=== PATIENT | female | born 1945 | race Caucasian/White ===

== ENCOUNTER 2018-01-24 17:15 | Inpatient (IN) | payer MEDICARE ==
[~2018-01-24] VITALS: Ht 160 cm; Wt 73.5 kg
[2018-01-24] MEDS ORDERED: BACL10TA PO ×2 (17:56→19:04)
[2018-01-24] MEDS ORDERED: Z GUARD REMEDY PASTE 57 GM TUBE TOP PRN (18:00)
[2018-01-24] MEDS ORDERED: HYDROCODONE/APAP 10-325 MG TABLET PO PRN (18:00)
[2018-01-24] MEDS ORDERED: LORAZEPAM 1 MG TABLET PO PRN ×2 (18:15→21:00)
[2018-01-24] MEDS ORDERED: ERGOCALCIFEROL 50,000 UNIT CAPSULE PO SCH ×2 (18:15→20:30)
[2018-01-24] MEDS ORDERED: GABA-534 PO ×2 (19:04→19:37)
[2018-01-24] MEDS ORDERED: HYDR-3980 PO (19:06)
[2018-01-24] MEDS ORDERED: LORA2VIA32 IV (19:08)
[2018-01-24] MEDS ORDERED: ERGO500014 PO (19:09)
[2018-01-24] MEDS ORDERED: OXYC20TA58 PO (19:09)
[2018-01-24] MEDS ORDERED: ESTR0.5T PO (19:37)
[2018-01-24] MEDS ORDERED: GLIP10TA11 PO (19:39)
[2018-01-24] MEDS ORDERED: NPH,100V2 (19:45)
[2018-01-24] MEDS ORDERED: NPH,100V2 SUBCUT (19:45)
[2018-01-24] MEDS ORDERED: BLOO-1672 MC (19:46)
[2018-01-24] MEDS ORDERED: HYDR25TA4 PO (19:47)
[2018-01-24] MEDS ORDERED: POTA10CA43 PO (19:51)
[2018-01-24] MEDS ORDERED: PARO20TA7 PO (19:51)
[2018-01-24] MEDS ORDERED: METF500T6 PO (19:51)
[2018-01-24] MEDS ORDERED: SIMV20TA6 PO (19:51)
[2018-01-24] MEDS ORDERED: OXYCODONE HCL 20 MG TAB.SR.12H PO PRN (20:30)
[2018-01-24] MEDS ORDERED: LORAZEPAM 2 MG/1 ML VIAL IV PRN (20:30)
[2018-01-24] MEDS ORDERED: INSULIN NPH 1,000 UNITS/10 ML VIAL SQ SCH (21:00)
[2018-01-24] MEDS ORDERED: BLOOD SUGAR DIAGNOSTIC 1 EACH STRIP VI SCH (21:00)
[2018-01-24] MEDS ORDERED: GABAPENTIN 300 MG CAPSULE PO SCH ×3 (21:00→22:00)
[2018-01-24] MEDS ORDERED: SIMVASTATIN 20 MG TABLET PO SCH (21:00)
[2018-01-24] MEDS ORDERED: OXYCODONE HCL 20 MG TAB.SR.12H PO SCH (21:00)
[2018-01-24] MEDS ORDERED: BACLOFEN 10 MG TABLET PO SCH (22:00)
[2018-01-24] MEDS: SIMVASTATIN 20 MG TABLET PO SCH (22:07)
[2018-01-24] MEDS: GABAPENTIN 300 MG CAPSULE PO SCH (22:08)
[2018-01-24] MEDS: BACLOFEN 10 MG TABLET PO SCH (22:08)
[2018-01-24] MEDS: INSULIN NPH 1,000 UNITS/10 ML VIAL SQ SCH (22:10)
[2018-01-24] MEDS: OXYCODONE HCL 10 MG TAB.SR.12H PO SCH (22:21)
[2018-01-24] MEDS: BLOOD SUGAR DIAGNOSTIC 1 EACH STRIP VI SCH (22:31)
[2018-01-25] MEDS: BACLOFEN 10 MG TABLET PO SCH ×3 (06:02→21:43)
[2018-01-25] MEDS: GABAPENTIN 300 MG CAPSULE PO SCH ×3 (06:03→21:44)
[2018-01-25] MEDS: OXYCODONE HCL 10 MG TAB.SR.12H PO SCH ×3 (06:05→22:36)
[2018-01-25] MEDS ORDERED: glipiZIDE 10 MG TABLET PO SCH (07:00)
[2018-01-25 07:01] LABS: CARBON DIOXIDE 29 mmol/L (21-32); CHLORIDE 96 mmol/L (98-107); CHOLESTEROL 122 mg/dL (<200); CREATININE 0.9 mg/dL (0.6-1.3); HDL CHOLESTEROL 24 mg/dL (40-60); MAGNESIUM 1.3 mg/dL (1.8-2.4); PHOSPHOROUS 2.8 mg/dL (2.5-4.9); POTASSIUM 4.1 mmol/L (3.5-5.1); TRIGLYCERIDES 200 MG/DL (30-150); UREA NITROGEN, BLOOD 10 mg/dL (7-18)
[2018-01-25 07:03] LABS: GLUCOSE 330 mg/dL (74-106)
[2018-01-25 07:12] LABS: BASOPHILS # (AUTO) 0.1 K/uL (0.0-8.0); BASOPHILS % (AUTO) 0.7 % (0.0-2.0); EOSINOPHILS # (AUTO) 0.2 K/uL (0.0-0.7); HEMATOCRIT 33.9 % (31.2-41.9); HEMOGLOBIN 11.2 g/dL (10.9-14.3); LYMPHOCYTES % (AUTO) 25.9 % (20.5-51.5); MEAN CORPUSCULAR HEMOGLOBIN 26.7 uug (24.7-32.8); MEAN CORPUSCULAR HGB CONC 33 g/dL (32.3-35.6); MEAN CORPUSCULAR VOLUME 80.9 fL (75.5-95.3); MONOCYTES # (AUTO) 1.6 K/uL (2.0-10.0); MONOCYTES % (AUTO) 13.8 % (0.0-11.0); NEUTROPHILS # (AUTO) 6.7 K/uL (1.8-8.9); NEUTROPHILS % (AUTO) 57.6 % (38.5-71.5); PLATELET COUNT (AUTO) 304 K/uL (179-408); WHITE BLOOD COUNT (AUTO) 11.7 K/uL (3.8-11.8)
[2018-01-25 07:14] VITALS: BP 130/87
[2018-01-25 08:32] VITALS: BP 152/59
[2018-01-25] MEDS ORDERED: POTASSIUM CHLORIDE 8 MEQ TAB.PRT.SR PO SCH (09:00)
[2018-01-25] MEDS ORDERED: METFORMIN HCL 850 MG TABLET PO SCH (09:00)
[2018-01-25] MEDS ORDERED: POTASSIUM CHLORIDE 10 MEQ TAB.PRT.SR PO SCH (09:00)
[2018-01-25] MEDS ORDERED: PAROXETINE HCL 10 MG TABLET PO SCH (09:00)
[2018-01-25] MEDS ORDERED: ESTRADIOL 1 MG TABLET PO SCH (09:00)
[2018-01-25] MEDS ORDERED: HYDROCHLOROTHIAZIDE 25 MG TABLET PO SCH (09:00)
[2018-01-25] MEDS: HYDROCHLOROTHIAZIDE 25 MG TABLET PO SCH (09:03)
[2018-01-25] MEDS: glipiZIDE 10 MG TABLET PO SCH (09:05)
[2018-01-25] MEDS: PAROXETINE HCL 20 MG TABLET PO SCH (09:05)
[2018-01-25] MEDS: ESTRADIOL 1 MG TABLET PO SCH (09:05)
[2018-01-25] MEDS: METFORMIN HCL 500 MG TABLET PO SCH (09:05)
[2018-01-25] MEDS: HYDROCODONE/APAP 10-325 MG TABLET PO PRN ×2 (09:26→20:08)
[2018-01-25] MEDS: POTASSIUM CHLORIDE 8 MEQ TAB.PRT.SR PO SCH (09:26)
[2018-01-25] MEDS: BLOOD SUGAR DIAGNOSTIC 1 EACH STRIP VI SCH ×3 (09:31→21:45)
[2018-01-25] MEDS: INSULIN NPH 1,000 UNITS/10 ML VIAL SQ SCH ×2 (09:36→21:51)
[2018-01-25] MEDS ORDERED: DEXTROSE 50% 50 ML DISP.SYRIN IV PRN (13:00)
[2018-01-25] MEDS ORDERED: MAGNESIUM OXIDE 400 MG TABLET PO ONE (14:00)
[2018-01-25] MEDS ORDERED: BLOOD SUGAR DIAGNOSTIC 1 EACH STRIP VI SCH (16:30)
[2018-01-25] MEDS: INSULIN REGULAR, HUMAN 300 UNIT/3 ML VIAL SQ PRN ×2 (17:30→21:51)
[2018-01-25 20:40] VITALS: BP 139/90
[2018-01-25] MEDS: SIMVASTATIN 20 MG TABLET PO SCH (21:44)
[2018-01-25] MEDS: ZOLPIDEM 5 MG TABLET PO PRN (22:36)
[2018-01-26] MEDS: HYDROCODONE/APAP 10-325 MG TABLET PO PRN ×2 (04:36→10:27)
[2018-01-26] MEDS: OXYCODONE HCL 10 MG TAB.SR.12H PO SCH ×3 (06:52→22:29)
[2018-01-26] MEDS: GABAPENTIN 300 MG CAPSULE PO SCH ×3 (06:52→22:30)
[2018-01-26] MEDS: BACLOFEN 10 MG TABLET PO SCH ×3 (06:52→22:30)
[2018-01-26] MEDS: BLOOD SUGAR DIAGNOSTIC 1 EACH STRIP VI SCH ×4 (06:53→21:00)
[2018-01-26] MEDS: PAROXETINE HCL 20 MG TABLET PO SCH (08:31)
[2018-01-26] MEDS: POTASSIUM CHLORIDE 8 MEQ TAB.PRT.SR PO SCH (08:31)
[2018-01-26] MEDS: ESTRADIOL 1 MG TABLET PO SCH (08:31)
[2018-01-26] MEDS: METFORMIN HCL 500 MG TABLET PO SCH (08:31)
[2018-01-26] MEDS: glipiZIDE 10 MG TABLET PO SCH (08:31)
[2018-01-26] MEDS: HYDROCHLOROTHIAZIDE 25 MG TABLET PO SCH (08:35)
[2018-01-26] MEDS: INSULIN NPH 1,000 UNITS/10 ML VIAL SQ SCH ×2 (08:38→22:25)
[2018-01-26] MEDS: INSULIN REGULAR, HUMAN 300 UNIT/3 ML VIAL SQ PRN ×4 (08:40→22:26)
[2018-01-26 10:50] VITALS: BP 144/78
[2018-01-26 22:15] VITALS: BP 151/71
[2018-01-26] MEDS: SIMVASTATIN 20 MG TABLET PO SCH (22:30)
[2018-01-26] MEDS: ZOLPIDEM 5 MG TABLET PO PRN (22:41)
[2018-01-27 05:17] VITALS: BP 157/70
[2018-01-27] MEDS: BACLOFEN 10 MG TABLET PO SCH ×3 (06:52→21:51)
[2018-01-27] MEDS: GABAPENTIN 300 MG CAPSULE PO SCH ×3 (06:52→21:51)
[2018-01-27] MEDS: OXYCODONE HCL 10 MG TAB.SR.12H PO SCH ×3 (06:52→21:52)
[2018-01-27] MEDS: BLOOD SUGAR DIAGNOSTIC 1 EACH STRIP VI SCH ×4 (07:00→20:27)
[2018-01-27] MEDS: INSULIN REGULAR, HUMAN 300 UNIT/3 ML VIAL SQ PRN ×4 (08:07→20:31)
[2018-01-27 09:00] VITALS: BP 145/82
[2018-01-27] MEDS: METFORMIN HCL 500 MG TABLET PO SCH (09:20)
[2018-01-27] MEDS: HYDROCHLOROTHIAZIDE 25 MG TABLET PO SCH (09:21)
[2018-01-27] MEDS: PAROXETINE HCL 20 MG TABLET PO SCH (09:21)
[2018-01-27] MEDS: glipiZIDE 10 MG TABLET PO SCH (09:21)
[2018-01-27] MEDS: POTASSIUM CHLORIDE 8 MEQ TAB.PRT.SR PO SCH (09:24)
[2018-01-27] MEDS: ESTRADIOL 1 MG TABLET PO SCH (09:24)
[2018-01-27] MEDS: INSULIN NPH 1,000 UNITS/10 ML VIAL SQ SCH ×2 (09:26→20:32)
[2018-01-27] MEDS: SIMVASTATIN 20 MG TABLET PO SCH (20:23)
[2018-01-27] MEDS: HYDROCODONE/APAP 10-325 MG TABLET PO PRN (20:24)
[2018-01-27 20:51] VITALS: BP 169/84
[2018-01-27] MEDS: CLONIDINE HCL 0.1 MG TABLET PO PRN (22:18)
[2018-01-27] MEDS: BENAZEPRIL HCL 10 MG TABLET PO SCH (22:19)
[2018-01-27 23:19] VITALS: BP 138/72
[2018-01-28 05:35] VITALS: BP 110/60
[2018-01-28] MEDS: BACLOFEN 10 MG TABLET PO SCH ×3 (05:59→22:17)
[2018-01-28] MEDS: GABAPENTIN 300 MG CAPSULE PO SCH ×3 (06:00→22:17)
[2018-01-28] MEDS: OXYCODONE HCL 10 MG TAB.SR.12H PO SCH ×3 (06:00→22:17)
[2018-01-28] MEDS: BLOOD SUGAR DIAGNOSTIC 1 EACH STRIP VI SCH ×4 (06:32→20:30)
[2018-01-28 08:00] VITALS: BP 129/66
[2018-01-28] MEDS: INSULIN REGULAR, HUMAN 300 UNIT/3 ML VIAL SQ PRN ×4 (08:19→20:37)
[2018-01-28] MEDS: BENAZEPRIL HCL 10 MG TABLET PO SCH ×2 (09:38→20:30)
[2018-01-28] MEDS: ESTRADIOL 1 MG TABLET PO SCH (09:39)
[2018-01-28] MEDS: HYDROCHLOROTHIAZIDE 25 MG TABLET PO SCH (09:39)
[2018-01-28] MEDS: PAROXETINE HCL 20 MG TABLET PO SCH (09:39)
[2018-01-28] MEDS: METFORMIN HCL 500 MG TABLET PO SCH (09:39)
[2018-01-28] MEDS: glipiZIDE 10 MG TABLET PO SCH (09:39)
[2018-01-28] MEDS: POTASSIUM CHLORIDE 8 MEQ TAB.PRT.SR PO SCH (09:39)
[2018-01-28] MEDS: INSULIN NPH 1,000 UNITS/10 ML VIAL SQ SCH ×2 (09:41→20:38)
[2018-01-28 16:22] VITALS: BP 144/63
[2018-01-28 20:16] VITALS: BP 129/64
[2018-01-28] MEDS: SIMVASTATIN 20 MG TABLET PO SCH (20:30)
[2018-01-28] MEDS: HYDROCODONE/APAP 10-325 MG TABLET PO PRN (20:31)
[2018-01-29] MEDS: OXYCODONE HCL 10 MG TAB.SR.12H PO SCH ×3 (06:27→21:53)
[2018-01-29] MEDS: BACLOFEN 10 MG TABLET PO SCH ×3 (06:27→21:52)
[2018-01-29] MEDS: GABAPENTIN 300 MG CAPSULE PO SCH ×3 (06:27→21:52)
[2018-01-29] MEDS: BLOOD SUGAR DIAGNOSTIC 1 EACH STRIP VI SCH ×4 (06:39→20:00)
[2018-01-29 07:23] LABS: BASOPHILS # (AUTO) 0.1 K/uL (0.0-8.0); BASOPHILS % (AUTO) 0.8 % (0.0-2.0); EOSINOPHILS # (AUTO) 0.4 K/uL (0.0-0.7); EOSINOPHILS % (AUTO) 3.3 % (0.0-7.0); HEMATOCRIT 32.3 % (31.2-41.9); HEMOGLOBIN 10.7 g/dL (10.9-14.3); LYMPHOCYTES # (AUTO) 3.2 K/uL (20.0-40.0); LYMPHOCYTES % (AUTO) 27.7 % (20.5-51.5); MEAN CORPUSCULAR HEMOGLOBIN 26.8 uug (24.7-32.8); MEAN CORPUSCULAR HGB CONC 33 g/dL (32.3-35.6); MEAN CORPUSCULAR VOLUME 80.9 fL (75.5-95.3); MONOCYTES # (AUTO) 1.4 K/uL (2.0-10.0); NEUTROPHILS # (AUTO) 6.4 K/uL (1.8-8.9); NEUTROPHILS % (AUTO) 56.2 % (38.5-71.5); PLATELET COUNT (AUTO) 299 K/uL (179-408); WHITE BLOOD COUNT (AUTO) 11.5 K/uL (3.8-11.8)
[2018-01-29 07:44] LABS: THYROID STIMULATING HORMONE 14.446 mIU/mL (0.358-3.740)
[2018-01-29] MEDS: INSULIN REGULAR, HUMAN 300 UNIT/3 ML VIAL SQ PRN ×4 (07:50→21:07)
[2018-01-29 08:14] LABS: ALANINE AMINOTRANSFERASE 27 U/L (14-59); ALKALINE PHOSPHATASE 73 U/L (50-136); ASPARTATE AMINOTRANSFERASE 44 U/L (15-37); BILIRUBIN,TOTAL 0.2 mg/dL (0.2-1.0); CARBON DIOXIDE 30 mmol/L (21-32); CHLORIDE 99 mmol/L (98-107); CREATININE 0.9 mg/dL (0.6-1.3); GLUCOSE 161 mg/dL (74-106); MAGNESIUM 1.3 mg/dL (1.8-2.4); PHOSPHOROUS 3.6 mg/dL (2.5-4.9); POTASSIUM 3.6 mmol/L (3.5-5.1); TOTAL PROTEIN, SERUM 7.1 g/dL (6.4-8.2); UREA NITROGEN, BLOOD 14 mg/dL (7-18)
[2018-01-29 08:16] VITALS: BP 120/64
[2018-01-29] MEDS: INSULIN NPH 1,000 UNITS/10 ML VIAL SQ SCH ×2 (09:52→21:06)
[2018-01-29] MEDS: PAROXETINE HCL 20 MG TABLET PO SCH (09:53)
[2018-01-29] MEDS: POTASSIUM CHLORIDE 8 MEQ TAB.PRT.SR PO SCH (09:55)
[2018-01-29] MEDS: HYDROCHLOROTHIAZIDE 25 MG TABLET PO SCH (09:56)
[2018-01-29] MEDS: ESTRADIOL 1 MG TABLET PO SCH (09:56)
[2018-01-29] MEDS: BENAZEPRIL HCL 10 MG TABLET PO SCH ×2 (09:57→21:02)
[2018-01-29] MEDS: HYDROCODONE/APAP 10-325 MG TABLET PO PRN ×2 (10:00→19:48)
[2018-01-29 15:30] VITALS: BP 103/55
[2018-01-29] MEDS ORDERED: MAGNESIUM OXIDE 400 MG TABLET PO ONE (15:30)
[2018-01-29 19:30] VITALS: BP 129/58
[2018-01-29] MEDS: SIMVASTATIN 20 MG TABLET PO SCH (21:02)
[2018-01-30] MEDS: BACLOFEN 10 MG TABLET PO SCH ×3 (06:05→21:18)
[2018-01-30] MEDS: OXYCODONE HCL 10 MG TAB.SR.12H PO SCH ×2 (06:05→14:31)
[2018-01-30] MEDS: GABAPENTIN 300 MG CAPSULE PO SCH ×3 (06:06→21:18)
[2018-01-30] MEDS: BLOOD SUGAR DIAGNOSTIC 1 EACH STRIP VI SCH ×4 (06:44→20:23)
[2018-01-30 07:02] VITALS: BP 112/57
[2018-01-30 08:09] VITALS: BP 127/55
[2018-01-30] MEDS: HYDROCHLOROTHIAZIDE 25 MG TABLET PO SCH (08:30)
[2018-01-30] MEDS: ESTRADIOL 1 MG TABLET PO SCH (08:31)
[2018-01-30] MEDS: BENAZEPRIL HCL 10 MG TABLET PO SCH ×2 (08:31→20:23)
[2018-01-30] MEDS: POTASSIUM CHLORIDE 8 MEQ TAB.PRT.SR PO SCH (08:31)
[2018-01-30] MEDS: PAROXETINE HCL 20 MG TABLET PO SCH (08:31)
[2018-01-30] MEDS: INSULIN REGULAR, HUMAN 300 UNIT/3 ML VIAL SQ PRN ×4 (08:36→21:20)
[2018-01-30] MEDS: INSULIN NPH 1,000 UNITS/10 ML VIAL SQ SCH ×2 (08:39→21:19)
[2018-01-30] MEDS: HYDROCODONE/APAP 10-325 MG TABLET PO PRN (10:43)
[2018-01-30 16:39] VITALS: BP 136/50
[2018-01-30] MEDS: SIMVASTATIN 20 MG TABLET PO SCH (20:23)
[2018-01-30 20:51] VITALS: BP 128/61
[2018-01-30] MEDS: OXYCODONE HCL 20 MG TAB.SR.12H PO SCH (21:19)
[2018-01-30] MEDS ORDERED: OXYCODONE HCL 10 MG TAB.SR.12H PO SCH (22:00)
[2018-01-30] MEDS ORDERED: LORAZEPAM 0.5 MG TABLET PO PRN (23:15)
[2018-01-30] MEDS: ZOLPIDEM 5 MG TABLET PO PRN (23:25)
[2018-01-31] MEDS: LEVOTHYROXINE SODIUM 50 MCG TABLET PO SCH (06:12)
[2018-01-31] MEDS: BACLOFEN 10 MG TABLET PO SCH ×3 (06:12→22:07)
[2018-01-31] MEDS: GABAPENTIN 300 MG CAPSULE PO SCH ×3 (06:13→22:07)
[2018-01-31] MEDS: OXYCODONE HCL 20 MG TAB.SR.12H PO SCH ×3 (06:15→22:08)
[2018-01-31] MEDS: BLOOD SUGAR DIAGNOSTIC 1 EACH STRIP VI SCH ×4 (06:34→20:08)
[2018-01-31 06:53] VITALS: BP 143/66
[2018-01-31] MEDS: PAROXETINE HCL 20 MG TABLET PO SCH (08:08)
[2018-01-31] MEDS: HYDROCHLOROTHIAZIDE 25 MG TABLET PO SCH (08:09)
[2018-01-31] MEDS: BENAZEPRIL HCL 10 MG TABLET PO SCH ×2 (08:09→20:05)
[2018-01-31] MEDS: ESTRADIOL 1 MG TABLET PO SCH (08:10)
[2018-01-31] MEDS: POTASSIUM CHLORIDE 8 MEQ TAB.PRT.SR PO SCH (08:10)
[2018-01-31] MEDS: INSULIN NPH 1,000 UNITS/10 ML VIAL SQ SCH ×2 (08:13→20:16)
[2018-01-31] MEDS: INSULIN REGULAR, HUMAN 300 UNIT/3 ML VIAL SQ PRN ×4 (08:15→20:16)
[2018-01-31] MEDS: HYDROCODONE/APAP 10-325 MG TABLET PO PRN ×2 (08:21→20:08)
[2018-01-31] MEDS ORDERED: ERGOCALCIFEROL 50,000 UNIT CAPSULE PO SCH (09:00)
[2018-01-31 11:36] VITALS: BP 139/79
[2018-01-31] MEDS: REPAGLINIDE 1 MG TABLET PO SCH ×2 (11:51→17:02)
[2018-01-31 19:30] VITALS: BP 144/61
[2018-01-31] MEDS: SIMVASTATIN 20 MG TABLET PO SCH (20:04)
[2018-01-31] MEDS: ZOLPIDEM 5 MG TABLET PO PRN (22:10)
[2018-02-01] MEDS: BACLOFEN 10 MG TABLET PO SCH ×3 (06:00→22:11)
[2018-02-01] MEDS: LEVOTHYROXINE SODIUM 50 MCG TABLET PO SCH (06:00)
[2018-02-01] MEDS: GABAPENTIN 300 MG CAPSULE PO SCH ×3 (06:00→22:12)
[2018-02-01] MEDS: OXYCODONE HCL 20 MG TAB.SR.12H PO SCH ×3 (06:01→22:12)
[2018-02-01] MEDS: BLOOD SUGAR DIAGNOSTIC 1 EACH STRIP VI SCH ×4 (06:31→20:40)
[2018-02-01 07:00] VITALS: BP 136/64
[2018-02-01] MEDS: REPAGLINIDE 1 MG TABLET PO SCH ×2 (08:33→16:56)
[2018-02-01] MEDS: POTASSIUM CHLORIDE 8 MEQ TAB.PRT.SR PO SCH (08:33)
[2018-02-01] MEDS: ESTRADIOL 1 MG TABLET PO SCH (08:33)
[2018-02-01 08:34] VITALS: BP 130/65
[2018-02-01] MEDS: HYDROCODONE/APAP 10-325 MG TABLET PO PRN ×2 (08:34→20:39)
[2018-02-01] MEDS: HYDROCHLOROTHIAZIDE 25 MG TABLET PO SCH (08:34)
[2018-02-01] MEDS: PAROXETINE HCL 20 MG TABLET PO SCH (08:34)
[2018-02-01] MEDS: BENAZEPRIL HCL 10 MG TABLET PO SCH ×2 (08:34→20:39)
[2018-02-01] MEDS: INSULIN NPH 1,000 UNITS/10 ML VIAL SQ SCH ×2 (08:38→20:47)
[2018-02-01] MEDS: INSULIN REGULAR, HUMAN 300 UNIT/3 ML VIAL SQ PRN ×4 (08:39→20:47)
[2018-02-01] MEDS: glipiZIDE 10 MG TABLET PO SCH (16:35)
[2018-02-01] MEDS: METFORMIN HCL 500 MG TABLET PO SCH (16:59)
[2018-02-01] MEDS: SIMVASTATIN 20 MG TABLET PO SCH (20:39)
[2018-02-01 21:30] VITALS: BP 149/64
[2018-02-01] MEDS: ZOLPIDEM 5 MG TABLET PO PRN (22:12)
[2018-02-02 05:24] VITALS: BP 130/60
[2018-02-02] MEDS: OXYCODONE HCL 20 MG TAB.SR.12H PO SCH ×3 (06:14→21:30)
[2018-02-02] MEDS: LEVOTHYROXINE SODIUM 50 MCG TABLET PO SCH (06:14)
[2018-02-02] MEDS: GABAPENTIN 300 MG CAPSULE PO SCH ×3 (06:14→21:27)
[2018-02-02] MEDS: BACLOFEN 10 MG TABLET PO SCH ×3 (06:14→21:27)
[2018-02-02] MEDS: BLOOD SUGAR DIAGNOSTIC 1 EACH STRIP VI SCH ×4 (06:35→21:30)
[2018-02-02 08:00] VITALS: BP 132/63
[2018-02-02] MEDS: REPAGLINIDE 1 MG TABLET PO SCH ×2 (08:12→16:45)
[2018-02-02] MEDS: ESTRADIOL 1 MG TABLET PO SCH (08:13)
[2018-02-02] MEDS: glipiZIDE 10 MG TABLET PO SCH (08:13)
[2018-02-02] MEDS: PAROXETINE HCL 20 MG TABLET PO SCH (08:13)
[2018-02-02] MEDS: POTASSIUM CHLORIDE 8 MEQ TAB.PRT.SR PO SCH (08:13)
[2018-02-02] MEDS: METFORMIN HCL 500 MG TABLET PO SCH ×2 (08:13→16:45)
[2018-02-02] MEDS: INSULIN NPH 1,000 UNITS/10 ML VIAL SQ SCH ×2 (08:15→22:30)
[2018-02-02] MEDS: HYDROCHLOROTHIAZIDE 25 MG TABLET PO SCH (08:15)
[2018-02-02] MEDS: BENAZEPRIL HCL 10 MG TABLET PO SCH ×2 (08:16→21:28)
[2018-02-02] MEDS: INSULIN REGULAR, HUMAN 300 UNIT/3 ML VIAL SQ PRN ×2 (16:51→21:42)
[2018-02-02] MEDS ORDERED: KETOROLAC TROMETHAMINE 60 MG INJ IM ONE (19:45)
[2018-02-02 19:49] VITALS: BP 168/74
[2018-02-02] MEDS ORDERED: KETOROLAC TROMETHAMINE 30 MG INJ IM ONE (21:00)
[2018-02-02] MEDS: SIMVASTATIN 20 MG TABLET PO SCH (21:28)
[2018-02-03 00:01] VITALS: BP 158/78
[2018-02-03] MEDS: CLONIDINE HCL 0.1 MG TABLET PO PRN (00:03)
[2018-02-03] MEDS: ZOLPIDEM 5 MG TABLET PO PRN ×2 (00:03→23:53)
[2018-02-03 01:02] VITALS: BP 146/51
[2018-02-03 05:58] VITALS: BP 120/61
[2018-02-03] MEDS: GABAPENTIN 300 MG CAPSULE PO SCH ×3 (06:56→21:29)
[2018-02-03] MEDS: OXYCODONE HCL 20 MG TAB.SR.12H PO SCH ×3 (06:56→21:33)
[2018-02-03] MEDS: BACLOFEN 10 MG TABLET PO SCH ×3 (06:56→21:29)
[2018-02-03] MEDS: LEVOTHYROXINE SODIUM 50 MCG TABLET PO SCH (06:57)
[2018-02-03] MEDS: BLOOD SUGAR DIAGNOSTIC 1 EACH STRIP VI SCH ×4 (06:59→20:21)
[2018-02-03 08:00] VITALS: BP 113/57
[2018-02-03] MEDS: REPAGLINIDE 1 MG TABLET PO SCH ×2 (08:00→18:03)
[2018-02-03] MEDS: METFORMIN HCL 500 MG TABLET PO SCH ×2 (08:00→18:03)
[2018-02-03] MEDS: INSULIN NPH 1,000 UNITS/10 ML VIAL SQ SCH ×2 (09:52→21:32)
[2018-02-03] MEDS: PAROXETINE HCL 20 MG TABLET PO SCH (09:55)
[2018-02-03] MEDS: BENAZEPRIL HCL 10 MG TABLET PO SCH ×2 (09:55→21:30)
[2018-02-03] MEDS: glipiZIDE 10 MG TABLET PO SCH (09:55)
[2018-02-03] MEDS: ESTRADIOL 1 MG TABLET PO SCH (09:56)
[2018-02-03] MEDS: HYDROCHLOROTHIAZIDE 25 MG TABLET PO SCH (09:56)
[2018-02-03] MEDS: POTASSIUM CHLORIDE 8 MEQ TAB.PRT.SR PO SCH (09:59)
[2018-02-03] MEDS: HYDROCODONE/APAP 10-325 MG TABLET PO PRN ×2 (10:17→18:13)
[2018-02-03] MEDS: INSULIN REGULAR, HUMAN 300 UNIT/3 ML VIAL SQ PRN ×4 (10:19→21:32)
[2018-02-03 19:21] VITALS: BP 158/67
[2018-02-03] MEDS ORDERED: INSULIN NPH 1,000 UNITS/10 ML VIAL SQ ONE (21:24)
[2018-02-03] MEDS: SIMVASTATIN 20 MG TABLET PO SCH (21:30)
[2018-02-04] MEDS: HYDROCODONE/APAP 10-325 MG TABLET PO PRN ×2 (00:28→20:26)
[2018-02-04 06:40] VITALS: BP 144/65
[2018-02-04] MEDS: OXYCODONE HCL 20 MG TAB.SR.12H PO SCH ×3 (06:42→22:00)
[2018-02-04] MEDS: LEVOTHYROXINE SODIUM 50 MCG TABLET PO SCH (06:43)
[2018-02-04] MEDS: GABAPENTIN 300 MG CAPSULE PO SCH ×3 (06:43→22:00)
[2018-02-04] MEDS: BACLOFEN 10 MG TABLET PO SCH ×3 (06:43→22:00)
[2018-02-04] MEDS: BLOOD SUGAR DIAGNOSTIC 1 EACH STRIP VI SCH ×4 (06:44→20:29)
[2018-02-04 08:07] VITALS: BP 131/78
[2018-02-04] MEDS: glipiZIDE 10 MG TABLET PO SCH (08:09)
[2018-02-04] MEDS: PAROXETINE HCL 20 MG TABLET PO SCH (08:09)
[2018-02-04] MEDS: REPAGLINIDE 1 MG TABLET PO SCH ×2 (08:09→17:24)
[2018-02-04] MEDS: POTASSIUM CHLORIDE 8 MEQ TAB.PRT.SR PO SCH (08:09)
[2018-02-04] MEDS: METFORMIN HCL 500 MG TABLET PO SCH ×2 (08:09→17:24)
[2018-02-04] MEDS: HYDROCHLOROTHIAZIDE 25 MG TABLET PO SCH (08:10)
[2018-02-04] MEDS: BENAZEPRIL HCL 10 MG TABLET PO SCH ×2 (08:10→20:23)
[2018-02-04] MEDS: ESTRADIOL 1 MG TABLET PO SCH (08:11)
[2018-02-04] MEDS: INSULIN NPH 1,000 UNITS/10 ML VIAL SQ SCH ×2 (08:14→20:39)
[2018-02-04] MEDS: INSULIN REGULAR, HUMAN 300 UNIT/3 ML VIAL SQ PRN ×4 (08:19→20:38)
[2018-02-04 15:18] VITALS: BP 133/72
[2018-02-04] MEDS: SIMVASTATIN 20 MG TABLET PO SCH (20:23)
[2018-02-04 20:37] VITALS: BP 158/72
[2018-02-04 22:00] VITALS: BP 172/76
[2018-02-04] MEDS: CLONIDINE HCL 0.1 MG TABLET PO PRN (22:01)
[2018-02-04 23:00] VITALS: BP 148/75
[2018-02-05 06:03] VITALS: BP 139/61
[2018-02-05] MEDS: OXYCODONE HCL 20 MG TAB.SR.12H PO SCH ×3 (06:13→22:01)
[2018-02-05] MEDS: BACLOFEN 10 MG TABLET PO SCH ×3 (06:13→22:00)
[2018-02-05] MEDS: GABAPENTIN 300 MG CAPSULE PO SCH ×3 (06:13→22:00)
[2018-02-05] MEDS: LEVOTHYROXINE SODIUM 50 MCG TABLET PO SCH (06:13)
[2018-02-05] MEDS: BLOOD SUGAR DIAGNOSTIC 1 EACH STRIP VI SCH ×4 (06:30→20:29)
[2018-02-05 07:43] VITALS: BP 106/62
[2018-02-05] MEDS: POTASSIUM CHLORIDE 8 MEQ TAB.PRT.SR PO SCH (08:21)
[2018-02-05] MEDS: PAROXETINE HCL 20 MG TABLET PO SCH (08:25)
[2018-02-05] MEDS: REPAGLINIDE 1 MG TABLET PO SCH ×2 (08:25→17:16)
[2018-02-05] MEDS: glipiZIDE 10 MG TABLET PO SCH (08:26)
[2018-02-05] MEDS: METFORMIN HCL 500 MG TABLET PO SCH ×2 (08:26→17:16)
[2018-02-05] MEDS: ESTRADIOL 1 MG TABLET PO SCH (08:26)
[2018-02-05] MEDS: INSULIN NPH 1,000 UNITS/10 ML VIAL SQ SCH ×2 (08:30→20:30)
[2018-02-05] MEDS: INSULIN REGULAR, HUMAN 300 UNIT/3 ML VIAL SQ PRN ×4 (08:46→20:31)
[2018-02-05] MEDS: HYDROCHLOROTHIAZIDE 25 MG TABLET PO SCH (10:06)
[2018-02-05] MEDS: BENAZEPRIL HCL 10 MG TABLET PO SCH ×2 (10:06→20:28)
[2018-02-05 16:44] VITALS: BP 141/64
[2018-02-05 20:20] VITALS: BP 126/66
[2018-02-05] MEDS: SIMVASTATIN 20 MG TABLET PO SCH (20:28)
[2018-02-05] MEDS: ZOLPIDEM 5 MG TABLET PO PRN (22:11)
[2018-02-06 05:36] VITALS: BP 134/59
[2018-02-06] MEDS: LEVOTHYROXINE SODIUM 50 MCG TABLET PO SCH (05:54)
[2018-02-06] MEDS: BACLOFEN 10 MG TABLET PO SCH (05:55)
[2018-02-06] MEDS: OXYCODONE HCL 20 MG TAB.SR.12H PO SCH (05:56)
[2018-02-06] MEDS: GABAPENTIN 300 MG CAPSULE PO SCH (05:56)
[2018-02-06] MEDS: BLOOD SUGAR DIAGNOSTIC 1 EACH STRIP VI SCH ×2 (06:36→11:42)
[2018-02-06 07:52] LABS: BASOPHILS # (AUTO) 0.1 K/uL (0.0-8.0); BASOPHILS % (AUTO) 0.7 % (0.0-2.0); EOSINOPHILS # (AUTO) 0.3 K/uL (0.0-0.7); EOSINOPHILS % (AUTO) 2.5 % (0.0-7.0); HEMATOCRIT 32.8 % (31.2-41.9); HEMOGLOBIN 10.9 g/dL (10.9-14.3); LYMPHOCYTES # (AUTO) 3.1 K/uL (20.0-40.0); MEAN CORPUSCULAR HEMOGLOBIN 26.7 uug (24.7-32.8); MEAN CORPUSCULAR HGB CONC 33 g/dL (32.3-35.6); MEAN CORPUSCULAR VOLUME 80.1 fL (75.5-95.3); MONOCYTES # (AUTO) 1.7 K/uL (2.0-10.0); MONOCYTES % (AUTO) 13.2 % (0.0-11.0); NEUTROPHILS # (AUTO) 7.3 K/uL (1.8-8.9); NEUTROPHILS % (AUTO) 58.6 % (38.5-71.5); PLATELET COUNT (AUTO) 307 K/uL (179-408); RED BLOOD CELL COUNT(AUTO) 4.09 MIL/uL (3.63-4.92); WHITE BLOOD COUNT (AUTO) 12.5 K/uL (3.8-11.8)
[2018-02-06 08:06] VITALS: BP 112/57
[2018-02-06] MEDS: METFORMIN HCL 500 MG TABLET PO SCH (08:06)
[2018-02-06] MEDS: POTASSIUM CHLORIDE 8 MEQ TAB.PRT.SR PO SCH (08:06)
[2018-02-06] MEDS: HYDROCHLOROTHIAZIDE 25 MG TABLET PO SCH (08:06)
[2018-02-06 08:07] VITALS: BP 112/57
[2018-02-06] MEDS: ESTRADIOL 1 MG TABLET PO SCH (08:07)
[2018-02-06] MEDS: REPAGLINIDE 1 MG TABLET PO SCH (08:07)
[2018-02-06] MEDS: PAROXETINE HCL 20 MG TABLET PO SCH (08:07)
[2018-02-06] MEDS: glipiZIDE 10 MG TABLET PO SCH (08:07)
[2018-02-06] MEDS: BENAZEPRIL HCL 10 MG TABLET PO SCH (08:07)
[2018-02-06] MEDS: INSULIN NPH 1,000 UNITS/10 ML VIAL SQ SCH (08:10)
[2018-02-06] MEDS: INSULIN REGULAR, HUMAN 300 UNIT/3 ML VIAL SQ PRN (11:45)
== END 2018-02-06 12:10 | disposition home health service (06) | DRG 560 ==
PROVIDERS: ADMIT Physical Medicine & Rehabilitation Pain Medicine; ATTEND Physical Medicine & Rehabilitation Pain Medicine
DX: Z47.89 Encounter for other orthopedic aftercare (principal); D68.59 Other primary thrombophilia; E87.1 Hypo-osmolality and hyponatremia; E11.40 Type 2 diabetes mellitus with diabetic neuropathy, unspecified; Z98.1 Arthrodesis status; E55.9 Vitamin D deficiency, unspecified; E78.5 Hyperlipidemia, unspecified; M81.0 Age-related osteoporosis without current pathological fracture; I10 Essential (primary) hypertension; G89.29 Other chronic pain; M51.16 Intervertebral disc disorders with radiculopathy, lumbar region; M96.1 Postlaminectomy syndrome, not elsewhere classified; M40.204 Unspecified kyphosis, thoracic region; E03.9 Hypothyroidism, unspecified; E11.42 Type 2 diabetes mellitus with diabetic polyneuropathy; L97.509 Non-pressure chronic ulcer of other part of unspecified foot with unspecified severity; E11.621 Type 2 diabetes mellitus with foot ulcer; E11.65 Type 2 diabetes mellitus with hyperglycemia; E66.9 Obesity, unspecified; Z68.30 Body mass index [BMI] 30.0-30.9, adult; E83.42 Hypomagnesemia; F32.9 Major depressive disorder, single episode, unspecified; F41.9 Anxiety disorder, unspecified; L84 Corns and callosities; M21.372 Foot drop, left foot; M25.78 Osteophyte, vertebrae; Z79.4 Long term (current) use of insulin; M19.90 Unspecified osteoarthritis, unspecified site; R26.9 Unspecified abnormalities of gait and mobility; Z88.5 Allergy status to narcotic agent; Z87.891 Personal history of nicotine dependence
CPT/HCPCS: 36415; 82306; 83735; 84100; 84443; 85025; 92507; 92610; 97110; 97112; 97116; 97530; 97535; J1815; J1885